=== PATIENT | female | born 1980 | race Caucasian/White ===

== ENCOUNTER 2017-01-17 07:53 | Emergency (ER) | payer MEDICAID ==
[~2017-01-17] VITALS: Ht 162.6 cm; Wt 75.0 kg
[~2017-01-17 07:53] MED LIST: PREN29TA PO
[2017-01-17 07:54] VITALS: BP 142/99; PULSE 79; RESP 15; TEMP 97.9; O2SAT 98
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
[2017-01-17 12:16] LABS: AUTOMATED NEUTROPHIL # 3.8 TH/MM3 (1.8-7.7); BASOPHIL % 0.6 % (0.0-2.0); EOSINOPHIL # 0.2 TH/MM3 (0-0.4); HEMO FLAGS DIFF FINAL; LYMPH % 27.3 % (9.0-44.0); LYMPHOCYTE # 1.7 TH/MM3 (1.0-4.8); MEAN CELL VOLUME 94.5 FL (80.0-100.0); MEAN CORPUSCULAR HEMOGLOBIN 31.9 PG (27.0-34.0); MEAN CORPUSCULAR HGB CONC 33.7 % (32.0-36.0); MONO % 7.2 % (0.0-8.0); NEUT % 60.9 % (16.0-70.0); PLATELET COUNT 284 TH/MM3 (150-450); RED BLOOD COUNT 4.34 MIL/MM3 (4.00-5.30); RED CELL DISTRIBUTION WIDTH 12.9 % (11.6-17.2); WHITE BLOOD COUNT 6.2 TH/MM3 (4.0-11.0)
--- NOTE | 2017-01-17 12:19 | RADRPT ---
EXAM DATE/TIME: 01/17/2017 11:58 [facility] COMPARISON: CHEST PA & LAT, November 18, 2015, 19:01. INDICATIONS : Cough. MEDICAL HISTORY : None. SURGICAL HISTORY : None. ENCOUNTER: Initial ACUITY: 1 day PAIN SCORE: 0/10 LOCATION: Bilateral chest FINDINGS: A single view of the chest demonstrates the lungs to be symmetrically aerated without evidence of mas s, infiltrate or effusion. The cardiomediastinal contours are unremarkable. Osseous structures are intact with multiple old healed fracture deformities in the left posterior and posterolateral ribs. M inimal degenerative spurring of the dorsal spine. CONCLUSION: 1. No acute cardiopulmonary process. 2. Stable, multiple old healed fracture deformities of the left ribs. Raymond Roe MD on January 17, 2017 at 12:16 Board Certified Radiologist. This report was verified electronically.
--- NOTE | 2017-01-17 12:22 | RADRPT ---
EXAM DATE/TIME: 01/17/2017 12:02 [facility] COMPARISON: No previous studies available for comparison. INDICATIONS: Difficulty swallowing. MEDICAL HISTORY: None. SURGICAL HISTORY: None. ENCOUNTER: Initial ACUITY: 1 day PAIN SCORE: 0/10 LOCATION: Bilateral neck FINDINGS: There is straightening of the normal cervical lordosis. I see no radiopaque foreign bodies. CONCLUSION: Negative for fracture or radiopaque foreign body. Zack Hernandez MD FACR on January 17, 2017 at 12:17 Board Certified Radiologist. This report was verified electronically.
[2017-01-17 12:34] LABS: ANION GAP 8 MEQ/L (5-15); AST (GOT) 12 U/L (15-37); BICARBONATE 25.5 MEQ/L (21.0-32.0); BLOOD UREA NITROGEN 12 MG/DL (7-18); CHLORIDE 106 MEQ/L (98-107); GLOMERULAR FILTRATION RATE 70 ML/MIN (>89); POTASSIUM 3.9 MEQ/L (3.5-5.1); SODIUM (NA) 139 MEQ/L (136-145)
[2017-01-17 12:37] LABS: ALKALINE PHOSPHATASE 52 U/L (45-117); ALT (GPT) 19 U/L (10-53); TOTAL BILIRUBIN ADULT 0.2 MG/DL (0.2-1.0)
== END 2017-01-17 11:58 | disposition left against medical advice (07) ==
LOC: NETRI 07:53
DX: M54.2 Cervicalgia (principal); F17.210 Nicotine dependence, cigarettes, uncomplicated; J44.9 Chronic obstructive pulmonary disease, unspecified; Y04.8XXA Assault by other bodily force, initial encounter; Y92.009 Unspecified place in unspecified non-institutional (private) residence as the place of occurrence of the external cause
CPT/HCPCS: 70360; 71010; 80053; 85025; 99284

== ENCOUNTER 2017-02-05 17:16 | Emergency (ER) | payer MEDICAID ==
[~2017-02-05] VITALS: Ht 162.6 cm; Wt 75.0 kg
[2017-02-05 17:18] VITALS: BP 116/56; PULSE 84; RESP 20; TEMP 98.8; O2SAT 99
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
[2017-02-05 19:45] LABS: AUTOMATED NEUTROPHIL # 4.5 TH/MM3 (1.8-7.7); BASOPHIL % 0.2 % (0.0-2.0); EOSINOPHIL % 0.2 % (0.0-4.0); HEMATOCRIT 37.6 % (35.0-46.0); HEMO FLAGS DIFF FINAL; LYMPH % 23.3 % (9.0-44.0); LYMPHOCYTE # 1.6 TH/MM3 (1.0-4.8); MEAN CELL VOLUME 92.1 FL (80.0-100.0); MEAN CORPUSCULAR HEMOGLOBIN 31.4 PG (27.0-34.0); MEAN CORPUSCULAR HGB CONC 34.1 % (32.0-36.0); MONO % 10.7 % (0.0-8.0); NEUT % 65.6 % (16.0-70.0); PLATELET COUNT 179 TH/MM3 (150-450); RED BLOOD COUNT 4.09 MIL/MM3 (4.00-5.30); RED CELL DISTRIBUTION WIDTH 12.7 % (11.6-17.2); WHITE BLOOD COUNT 6.8 TH/MM3 (4.0-11.0)
[2017-02-05 19:55] LABS: BACTERIA, URINE RARE /hpf; BLOOD, URINE SMALL (NEG); COMMENT (UR) CULT NOT INDICATED; CULTURE IF INDICATED CULT NOT INDICATED; GLUCOSE,URINE NEG (NEG); HYALINE CAST, URINE 1 /lpf (RARE); KETONE, URINE NEG (NEG); MUCUS URINE FEW /lpf (OCC); NITRITE,URINE NEG (NEG); PH, URINE 5.5 (5.0-8.5); SQUAMOUS EPITHELIAL CELL URINE 3 /hpf (0-5); URINE COLOR YELLOW (YELLW/STRAW); WHITE BLOOD CELL CAST, URINE 4 /lpf
[2017-02-05 20:09] LABS: ANION GAP 7 MEQ/L (5-15); AST (GOT) 16 U/L (15-37); BICARBONATE 26.6 MEQ/L (21.0-32.0); BLOOD UREA NITROGEN 14 MG/DL (7-18); CHLORIDE 105 MEQ/L (98-107); GLOMERULAR FILTRATION RATE 56 ML/MIN (>89); POTASSIUM 3.7 MEQ/L (3.5-5.1); SODIUM (NA) 139 MEQ/L (136-145)
[2017-02-05 20:12] LABS: ALKALINE PHOSPHATASE 56 U/L (45-117); ALT (GPT) 21 U/L (10-53); TOTAL BILIRUBIN ADULT 0.2 MG/DL (0.2-1.0)
[2017-02-05 21:29] VITALS: BP 117/68; PULSE 92; RESP 18; TEMP 102; O2SAT 96
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
[2017-02-05] MEDS ORDERED: SODIUM CHLOR 0.9% 1000 ML INJ 1,000 ML IV ONE ×2 (21:45→23:00)
[2017-02-05] MEDS ORDERED: KETOROLAC TROMETHAMINE 30 MG/ML (IVP) VIAL IV PUSH ONE (21:45)
[2017-02-05] MEDS ORDERED: ACETAMINOPHEN 325 MG TAB PO ONE (21:45)
[2017-02-05] MEDS ORDERED: IOHEXOL 350 MG/ML 10 ML VIAL (for RAD DIAG) IV ONE (22:06)
--- NOTE | 2017-02-05 22:16 | RADRPT ---
EXAM DATE/TIME: 02/05/2017 22:01 [facility] COMPARISON: No previous studies available for comparison. INDICATIONS : Right neck swelling and pain. IV CONTRAST: 50 cc Omnipaque 350 (iohexol) IV RADIATION DOSE: 18.41 CTDIvol (mGy) MEDICAL HISTORY : None SURGICAL HISTORY : Tubal ligation. Breast augmentation. ENCOUNTER: Initial ACUITY: 1 day PAIN SCALE: 5/10 LOCATION: Right neck TECHNIQUE: Volumetric scanning of the neck was performed. Using automated exposure control and adjustment of th e mA and/or kV according to patient size, radiation dose was kept as low as reasonably achievable to obtain optimal diagnostic quality images. FINDINGS: NASOPHARYNX: The nasopharyngeal airway has a normal configuration. No mucosal thickening or mass is seen. OROPHARYNX: The intrinsic muscles of the tongue are symmetric. The tonsillar pillars are intact. The prevertebr al soft tissues are not thickened. LARYNX: The supraglottic, glottic, and infraglottic structures are intact. PARAPHARYNGEAL: The parapharyngeal space is intact. SALIVARY GLANDS: The parotid and submandibular glands are intact. LYMPH NODES: No enlarged or necrotic-appearing nodes. THYROID: Multiple prominent lymph nodes in the right neck just deep to the sternocleidomastoid musculature. 2 the larger lymph nodes measure 1.4 x 1.2 cm and 1.4 x 1.1 cm. There are inflammatory changes. There a re some small lymph nodes in left neck. There are some mildly prominent lymph nodes in the right supe r clavicular region.. BONES: Unremarkable. CONCLUSION: 1. There are multiple prominent lymph nodes in the right neck as described above. Minimal inflammator y changes. This could be infectious, inflammatory or neoplastic. Ulices Mac MD on February 05, 2017 at 22:11 Board Certified Radiologist. This report was verified electronically.
--- NOTE | 2017-02-05 22:21 | RADRPT ---
EXAM DATE/TIME: 02/05/2017 22:08 [facility] COMPARISON: CHEST SINGLE AP, January 17, 2017, 11:58. INDICATIONS : Fever. MEDICAL HISTORY : None. SURGICAL HISTORY : Tubal ligation. ENCOUNTER: Initial ACUITY: 1 day PAIN SCORE: 4/10 LOCATION: Bilateral chest FINDINGS: A single view of the chest demonstrates minimal left basilar density. Right lung clear. The cardiomed iastinal contours are unremarkable. Multiple old left-sided rib fractures. CONCLUSION: Left basilar density could be atelectasis or infiltrate. Ulices Mac MD on February 05, 2017 at 22:18 Board Certified Radiologist. This report was verified electronically.
[2017-02-05] MEDS ORDERED: AZITHROMYCIN INJ 500 MG in SODIUM CHLOR 0.9% 250 ML INJ 250 ML IV ONE (22:45)
[2017-02-05] MEDS ORDERED: cefTRIAXone INJ 1,000 MG in SODIUM CHLORIDE 0.9% INJ 100 ML IV ONE (22:45)
[2017-02-05] MEDS ORDERED: ALBU6.7H INH (22:54)
[2017-02-05] MEDS ORDERED: ZITHTAB PO (22:54)
[2017-02-06] MEDS ORDERED: AUGM875T PO (00:27)
== END 2017-02-06 03:02 | disposition home or self-care (01) ==
LOC: NEPC 17:16
DX: R59.0 Localized enlarged lymph nodes (principal); R91.8 Other nonspecific abnormal finding of lung field
CPT/HCPCS: 70360; 70491; 71010; 80053; 81001; 83605; 84703; 85025; 87040; 87081; 87804; 87880; 96361; 96365; 96375; 99285; J0456; J0696; J1885; J7030; J7050; Q9967

== ENCOUNTER 2018-04-20 10:12 | Emergency (ER) | payer MEDICAID ==
[~2018-04-20] VITALS: Ht 160 cm; Wt 75.0 kg
[~2018-04-20 10:12] MED LIST changes: +ALBU6.7H INH; +AUGM875T PO
[2018-04-20 10:15] VITALS: BP 117/77; PULSE 75; RESP 20; TEMP 99; O2SAT 98
--- NOTE | 2018-04-20 10:41 | PD ---
HPI Chief Complaint: Abdominal Pain Time Seen by Provider: 10:30 Travel History International Travel<30 days: No Contact w/Intl Traveler<30days: No Traveled to known affect area: No History of Present Illness HPI The patient was seen and examined in the presence of the nurse. This patient complains of abdominal pain. Location is left lower quadrant. Severity is moderate. Duration is 10 days. No alleviating factors. No exacerbating factors. Not having vomiting or diarrhea. No fevers. She does report urinary frequency. No vaginal discharge. PFSH Past Medical History Hx Anticoagulant Therapy: No Asthma: No Bipolar Disorder: Yes Anxiety: Yes COPD: Yes Diabetes: No Diminished Hearing: No Reproductive: Yes (HX OF DUB, MENSTRUAL IRREGULARITIES AND PLACENTA PREVIA IN LAST ) Respiratory: Yes Immunizations Current: Yes Ulcer: Yes (ulcerative colitis) Tetanus Vaccination: > 5 Years Influenza Vaccination: No ?: Not LMP: 03/2018 : 5 Para: 2 Miscarriage: 3 Tubal Ligation: Yes Past Surgical History Thoracic Surgery: Yes (BREAST AUGMENTATION) Tonsillectomy: Yes Other Surgery: Yes (LEFT CHEST TUBE FOR COLLAPSED LUNG-TRAUMATIC) Social History Alcohol Use: Yes Tobacco Use: No (quit 01/19/17) Substance Use: Yes (marijuana) Allergies-Medications (Allergen,Severity, Reaction): Coded Allergies: codeine (Unverified Allergy, Mild, Hives, 04/20/18) Reported Meds & Prescriptions Reported Meds & Active Scripts Active Reported Plus Iron 29-1 mg ( Vit-Iron Carbonyl) 1 Tab Tab 1 Tab PO DAILY Review of Systems General / Constitutional: No: Fever Eyes: No: Visual changes HENT: No: Headaches Cardiovascular: No: Chest Pain or Discomfort Respiratory: No: Shortness of Breath Gastrointestinal: Positive: Abdominal Pain Genitourinary: Positive: Frequency, Pelvic Pain, No: Dysuria Musculoskeletal: No: Pain Skin: No Rash Neurologic: No: Weakness Psychiatric: No: Depression Endocrine: No: Polydipsia Hematologic/Lymphatic: No: Easy Bruising Physical Exam Narrative GENERAL: Well-nourished, well-developed patient in no apparent distress. SKIN: Focused skin assessment reveals no rash and nodules. Skin is Warm and dry. HEAD: Atraumatic. Normocephalic. EYES: Pupils equal and round. No scleral icterus. No injection or drainage. ENT: No nasal bleeding or discharge. Mucous membranes pink and moist. NECK: Trachea midline. No JVD. CARDIOVASCULAR: Regular rate and rhythm. No murmur appreciated. RESPIRATORY: No accessory muscle use. Clear to auscultation. Breath sounds equal bilaterally. GASTROINTESTINAL: Abdomen soft, left lower quadrant is tender without rebound or guarding, nondistended. Hepatic and splenic margins not palpable. MUSCULOSKELETAL: No obvious deformities. No clubbing. No cyanosis. No edema. NEUROLOGICAL: Awake and alert. No obvious cranial nerve deficits. Motor grossly within normal limits. Normal speech. PSYCHIATRIC: Appropriate mood and affect; insight and judgment normal. Pelvic: No cervical motion tenderness. No discharge or bleeding. Data Data Last Documented VS Vital Signs Date Time Temp Pulse Resp B/P (MAP) Pulse Ox O2 Delivery O2 Flow Rate FiO2 04/20/18 10:36 18 04/20/18 10:15 99.0 75 117/77 (90) 98 Orders Orders Complete Blood Count With Diff (04/20/18 10:37) Basic Metabolic Panel (Bmp) (04/20/18 10:37) Urinalysis - C+S If Indicated (04/20/18 10:37) Iv Access Insert/Monitor (04/20/18 10:37) Ed Urine Pregnancytest Poc (04/20/18 10:37) Labs Laboratory Tests Test 04/20/18 10:30 White Blood Count 6.2 TH/MM3 Red Blood Count 4.21 MIL/MM3 Hemoglobin 13.3 GM/DL Hematocrit 39.7 % Mean Corpuscular Volume 94.3 FL Mean Corpuscular Hemoglobin 31.6 PG Mean Corpuscular Hemoglobin Concent 33.5 % Red Cell Distribution Width 12.6 % Platelet Count 276 TH/MM3 Mean Platelet Volume 7.8 FL Neutrophils (%) (Auto) 50.6 % Lymphocytes (%) (Auto) 35.9 % Monocytes (%) (Auto) 7.4 % Eosinophils (%) (Auto) 5.2 % Basophils (%) (Auto) 0.9 % Neutrophils # (Auto) 3.1 TH/MM3 Lymphocytes # (Auto) 2.2 TH/MM3 Monocytes # (Auto) 0.5 TH/MM3 Eosinophils # (Auto) 0.3 TH/MM3 Basophils # (Auto) 0.1 TH/MM3 CBC Comment DIFF FINAL Differential Comment Urine Color YELLOW Urine Turbidity CLEAR Urine pH 7.0 Urine Specific [place] 1.014 Urine Protein NEG mg/dL Urine Glucose (UA) NEG mg/dL Urine Ketones NEG mg/dL Urine Occult Blood NEG Urine Nitrite NEG Urine Bilirubin NEG Urine Urobilinogen LESS THAN 2.0 MG/DL Urine Leukocyte Esterase NEG Urine RBC LESS THAN 1 /hpf Urine WBC LESS THAN 1 /hpf Urine Squamous Epithelial Cells 1 /hpf Microscopic Urinalysis Comment CULT NOT INDICATED Blood Urea Nitrogen 19 MG/DL Creatinine 0.75 MG/DL Random Glucose 115 MG/DL Calcium Level 8.8 MG/DL Sodium Level 140 MEQ/L Potassium Level 4.1 MEQ/L Chloride Level 108 MEQ/L Carbon Dioxide Level 24.4 MEQ/L Anion Gap 8 MEQ/L Estimat Glomerular Filtration Rate 86 ML/MIN MDM Medical Decision Making Medical Screen Exam Complete: Yes Emergency Medical Condition: Yes Medical Record Reviewed: Yes Differential Diagnosis Colitis, ectopic, PID Narrative Course I have reviewed the patient's electronic medical record. IV placed and labs sent Urine is negative Urinalysis is normal I reviewed her labs which revealed normal CBC and normal metabolic profile Pelvic exam is unremarkable Etiology of her left lower quadrant pain is unclear but stable for outpatient follow-up Diagnosis Primary Impression: Abdominal pain Qualified Codes: R10.32 - Left lower quadrant pain Additional Instructions: The patient was advised to follow up with their physician and return if they worsen. Med/Other Pt SpecificInfo: Other Disposition: 01 DISCHARGE HOME Condition: Stable [place] Early MD April 20, 2018 10:41
[2018-04-20 11:04] LABS: AUTOMATED NEUTROPHIL # 3.1 TH/MM3 (1.8-7.7); BASOPHIL # 0.1 TH/MM3 (0-0.2); BASOPHIL % 0.9 % (0.0-2.0); EOSINOPHIL # 0.3 TH/MM3 (0-0.4); EOSINOPHIL % 5.2 % (0.0-4.0); HEMATOCRIT 39.7 % (35.0-46.0); HEMOGLOBIN 13.3 GM/DL (11.6-15.3); LYMPH % 35.9 % (9.0-44.0); LYMPHOCYTE # 2.2 TH/MM3 (1.0-4.8); MEAN CELL VOLUME 94.3 FL (80.0-100.0); MEAN CORPUSCULAR HEMOGLOBIN 31.6 PG (27.0-34.0); MEAN CORPUSCULAR HGB CONC 33.5 % (32.0-36.0); MEAN PLATELET VOLUME 7.8 FL (7.0-11.0); MONO % 7.4 % (0.0-8.0); MONOCYTE # 0.5 TH/MM3 (0-0.9); NEUT % 50.6 % (16.0-70.0); PLATELET COUNT 276 TH/MM3 (150-450); RED BLOOD COUNT 4.21 MIL/MM3 (4.00-5.30); RED CELL DISTRIBUTION WIDTH 12.6 % (11.6-17.2); WHITE BLOOD COUNT 6.2 TH/MM3 (4.0-11.0)
[2018-04-20 11:06] LABS: BILIRUBIN, URINE NEG (NEG); BLOOD, URINE NEG (NEG); GLUCOSE,URINE NEG (NEG); KETONE, URINE NEG (NEG); NITRITE,URINE NEG (NEG); SQUAMOUS EPITHELIAL CELL URINE 1 /hpf (0-5); URINE COLOR YELLOW (YELLW/STRAW); URINE LEUKOCYTE ESTERASE NEG (NEG)
[2018-04-20 11:29] LABS: BICARBONATE 24.4 MEQ/L (21.0-32.0); CALCIUM 8.8 MG/DL (8.5-10.1); CREATININE 0.75 MG/DL (0.50-1.00)
== END 2018-04-20 12:34 | disposition home or self-care (01) ==
LOC: NEPC 10:12
DX: R10.32 Left lower quadrant pain (principal); F12.90 Cannabis use, unspecified, uncomplicated
CPT/HCPCS: 80048; 81001; 84703; 85025; 99283